=== PATIENT | male | born 1940 | race Caucasian/White ===

== ENCOUNTER → 2016-12-23 | Outpatient (CLI) | payer OTHER ==
[~2016-12-23] MED LIST: ASPIR 8181 M1 PO; CLEOCIN HCL300 MG PO; COUMADIN 2.5MG2.5 M1 PO; COUMADIN 5 MG TA5 M1 PO; ELIQUIS5 MG PO; FUROSEMIDE PO; HYDROCODON-ACE1 EAC1 PO; LOVASTAT20 PO; MOBIC15 MG PO; NORCO 5-325 TA1 EACH PO; NORFLEX100 MG PO; PACERONE 200 M200 M1 PO; PERCOCET 5-3251 EACH PO; PRADAXA150 MG PO; PRILOSEC 20 MG20 MG PO; PROTONIX40 M1 PO; TOPROL XL100 MG PO; VERAPAMIL ER180 M1 PO; VERAPAMIL ER180 MG PO; VITAMIN B-121000 MCG PO; ZOLOFT 50 MG TA50 M1 PO
--- NOTE | ~2016-12-23 | 2DMMODE ---
[facility] [employer] [place] [address] 2 D/M-MODE ECHOCARDIOGRAM Name: GREGORY BARRETT Jw Room [facility]: [facility] [id number] Admission: 12/23/16 Attend Phys: Yves Reed, Discharge: Date of : 36 Date of Service: 12/23/16 1121 Report #: [id number] THIS REPORT FOR: //name// APPROVED REPORT Study performed: 12/23/2016 09:02:18 EXAM: Comprehensive 2D, Doppler, and color-flow Echocardiogram Patient Location: Out-Patient Blood Pressure: 136/78 mmHg HR: 77 bpm Rhythm: Atrial Fibrillation Other Information Study Quality: Adequate Indications Atrial Fibrillation CAD Hypertrophic Cardiomyopathy. 2D Dimensions RVDd: 35.83 mm LVEF(%): 67.85 (>50%) IVSd: 21.62 (7-11mm) LVOT Diam: 21.52 (18-24mm) LVDd: 45.87 mm PWd: 12.31 (7-11mm) Ascending Ao: 34.59 (22-36mm) LVDs: 28.58 (25-40mm) Aortic Root: 31.19 mm IVC: 18.00 mm Trejo's LVEF: 67.85 % Volumes Left Atrial Volume (Systole) Single Plane 4CH: 69.93 mL Single Plane 2CH: 85.22 mL LA ESV Index: 42.00 mL/m2 Aortic Valve AoV Peak Manav.: 2.07 m/s AO Peak Gr.: 17.23 mmHg Mitral Valve MV Decel. Time: 222.35 ms MV E Max Manav.: 0.90 m/s [facility] [address] [place] [address] 2 D/M-MODE ECHOCARDIOGRAM Name: GREGORY BARRETT Room #: REG Teto#: [id number] Admission: 12/23/16 Attend Phys: Yves Reed, Discharge: Date of : 36 Date of Service: 12/23/16 1121 Report #: [id number] Pulmonary Valve PV Peak Manav.: 0.94 m/s PV Peak Gr.: 3.57 mmHg Tricuspid Valve TR Peak Manav.: 2.15 m/s RAP Estimate: 5.00 mmHg TR Peak Gr.: 18.51 mmHg Left Ventricle The left ventricle is normal size. Echo findings are consistent with hypertrophic cardiomyopathy. Left ventricular systolic function is hyperdynamic. There is an increased left ventricular gradient with a peak of 180 mmHg. LVEF is >70%. Diastolic function cannot be accurately assessed. Right Ventricle The right ventricle is normal size. The right ventricular systolic function is normal. Atria Left atrium is dilated. Right atrium is dilated. Aortic Valve The aortic valve is normal in structure. Trace aortic regurgitation. There is no aortic valvular stenosis. Mitral Valve The mitral valve is normal in structure. There is systolic anterior motion of the mitral valve. Mild to moderate mitral regurgitation. No evidence of mitral valve stenosis. Tricuspid Valve The tricuspid valve is normal in structure. There is trace to mild tricuspid regurgitation. The right atrial pressure is estimated at 5 mmHg. There is no pulmonary hypertension. Pulmonic Valve The pulmonary valve is normal in structure. There is no pulmonic valvular regurgitation. Great Vessels The aortic root is normal in size. IVC is normal in size and collapses >50% with inspiration. Pericardium There is no pericardial effusion. [facility] [employer] [place] [address] 2 D/M-MODE ECHOCARDIOGRAM Name: GREGORY BARRETT Jw [facility]: [facility] [id number] Admission: 12/23/16 Attend Phys: Yves Reed, Discharge: Date of : 36 Date of Service: 12/23/16 1121 Report #: [id number] <Conclusion> The left ventricle is normal size. Echo findings are consistent with hypertrophic cardiomyopathy. Left ventricular systolic function is hyperdynamic. There is an increased left ventricular gradient with a peak of 180 mmHg. Left atrium is dilated. Right atrium is dilated. The aortic valve is normal in structure. The mitral valve is normal in structure. There is systolic anterior motion of the mitral valve. Mild to moderate mitral regurgitation. The tricuspid valve is normal in structure. There is trace to mild tricuspid regurgitation. The right atrial pressure is estimated at 5 mmHg. There is no pulmonary hypertension. <ELECTRONICALLY SIGNED> By: Sanjay Vazquez MD 12/23/16 1121 1121 112 Sanjay Vazquez MD /INF
== END ==
LOC: CV 07:50
DX: I48.91 Unspecified atrial fibrillation (principal); I25.10 Atherosclerotic heart disease of native coronary artery without angina pectoris; I42.2 Other hypertrophic cardiomyopathy